=== PATIENT | female | born 1970 | race Caucasian/White ===

== ENCOUNTER 2025-03-23 17:33 | Emergency (ER) | payer OTHER, SELFPAY ==
--- OUTSIDE RECORDS SUMMARY | 2004-12-21 04:06 | XMS_ITS | Continuity of Care Document ---
Author Organization [facility] Address [address] [place] [address] Phone Care Team Providers Care Ocularist Name Role Phone Tom Pate MD Unavailable Unavaila ble Procedures Procedure Date ESTABLISHED PATIENT POSTOP FOLLOWUP VISI T DEBRIDE SKIN/SUBCU/MUSCLE ESTABLISHED PATIENT POSTOP FOLLOWUP VISI T Advance Directives Directive Yes / No Effective Date File Name No Information Encounters Encounter Description Practice Location Reason(s) For Visit Diagnoses Date Provider Providers Copied on Encounter [facility], [facility] [address], [place], [place], [id number], [place] tel:[phone] [facility] No Information 1-[address] [place], [address]. tel:[phone] Referring Provider: Tom Figueredo, [address] [place], [address]. tel:[phone] [facility], [facility] [place], [place], [id number], [place] tel:[phone] [facility] No Information 0-[address] [place], [address]. tel:[phone] Referring Provider: Tom Figueredo, [address] [place], [address]. tel:[phone] [facility], [address], [place], [place], [id number], [place] tel:[phone] [facility] No Information Oct-0 4-200 [address] [place], [address]. tel:[phone] Referring Provider: Tom Pate MD H, [address] [place], [address]. tel:[phone] Family History Family Member Type Diagnosis Age At Onset No Information Payers Payer name Insurance type Covered alliance party ID [employer] obggs(s) [facility] [id number] Social History Type Description Quantity Date Captured Comments Sex Female Smoking Status No Information Chief Complaint And Reason For Visit No Information Reason For Referral Reason For Referral No Information History Of Present Illness Encounter Date Complaint History Of Prese nt Illness No Information Functional Status Date Functional Assessmen t No Information Instructions Date Instruction Additional Infor mation No Information Assessments Type Assessment Date No Information Patient Care Teams Name Effective Dates (start - stop) Status Members No Information
--- OUTSIDE RECORDS SUMMARY | 2025-03-23 17:42 | XMS_ITS | Clinical Summary ---
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 artery disease Father Gokul ortiz artery disease; Diabetes Father Gokul Diabetes; Diabetes type II Father Gokul Diabetes me llitus type 2; Heart attack Father Gokul Myocardial infa rction; Heart failure Father Gokul Lung cancer Father Gokul Prostate cancer Father Gokul Cancer, pros piña; Rheum arthritis Father Gokul Breast cancer Father's Sister Jaclyn Nair Colon cancer Father's Sister Jaclyn Nair Cancer, co allyn; Colon polyps Mother Sharla Brown Coronary artery disease Mother Sharla ortiz artery disease; Diabetes Mother Sharla Brown Diabetes; Diabetes type II Mother Sharla Brown Diabetes me llitus type 2; Heart failure Mother Sharla Brown Congestive hea rt failure; Cause of : Congestive heart failure/Congestive heart failure; Hypertension Mother Sharla Brown Hypertension; Non-Hodgkin's Lymphoma Mother Sharla Brown Non-H odgkin's lymphoma; /Non-Hodgkin's lymphoma; Cause of : Non-Hodgkin's lymphoma Obesity Mother Sharla Brown Thyroid disease Mother Sharla Brown Diabetes Paternal Grandmother Romana Diabete s; Heart attack Paternal Grandmother Romana Myocard ial infarction; Asthma Sister Marifer Cavanaugh Ovarian cancer Neg Hx Uterine cancer Neg Hx Relation Name Status Comments Father Gokul Father's Sister Jaclyn Nair Mother Sharla Brown Paternal Grandmother Romana Sister Marifer Cavanaugh Alive Social History Tobacco Use Types Packs/Day Years Used Date Smoking Tobacco: Never Smokeless Tobacco: Never Tobacco Cessation:Counseling Given: Not Answered Alcohol Use Standard Drinks/Week Comments Yes 1 (1 standard drink = 0.6 oz pur e alcohol) AUDIT-C Answer Date Recorded Q1: How often do you have a drink containing alc ohol? Monthly or less 10/04/2021 Q2: How many drinks containi ng alcohol do you have on a typical day when you are drinking? 1 or 2 10/04/2021 Q3: How often do you have si x or more drinks on one occasion? 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 Gender Identity Female 10/09/2020 11:02 AM CDT Sexual Orientation Not on file Obstetrics History Para Term AB IAB SAB Ectopic Multiple Livin g Live Births 1 1 1 Date Outcome GA Total Labor Labor/2nd/3rd Weight Sex Type Anes PTL Arina A1 A5 Name Clin 1996 Para 3.43 kg (7 lb 9 oz) Vag-S pont Complications:Gestational di abetes Last Filed Vital Signs Vital Sign Reading Time Taken Comments Blood Pressure 135/83 10/16/2024 8:07 AM CDT Pulse 71 10/16/2024 8:07 AM CDT Temperature 36.7 C (98.1 F) 10/16/2024 8:07 AM CDT Respiratory Rate 14 10/08/2024 2:17 PM CDT Oxygen Saturation 96% 10/08/2024 2:17 PM CDT Inhaled Oxygen Concentration - - Weight 108.9 kg (240 lb) 03/20/2025 11:34 AM CDT Height 160 cm (5' 3) 03/20/2025 11:34 AM CDT Body Mass Index 42.51 03/20/2025 11:34 AM CDT Plan of Treatment Scheduled Procedures Name Priority Associated Diagnoses Date/Ti me COLONOSCOPY Screening for colon cancer Health Maintenance Due Date Last Done Comments Pneumococcal vaccine <65 (2 of 2 - PCV) 08/25/2015 08/25/2014 Zoster Vaccine (1 of 2) 2020 Covid-19 Vaccine (2023-2 5 season) 2024 07/29/2023, 09/04/2022, 05/14/2022, Additional history exists Influenza Vaccine (#1) 2025 , 06/02/2023, 05/14/2022, Additional history exists Albumin Creatinine Ratio, Urine 04/01/2025 04/01/2024, 02/23/2023, 03/02/2021, Additional history exists Lipid Panel 04/01/2025 04/01/2024, 08/0 09/2022, 09/22/2021, Additional history exists eGFR 04/01/2025 04/01/2024, 08/0 09/2022, 09/22/2021, Additional history exists Hemoglobin A1C 04/18/2025 10/16/2024, 06/2 10/2023, 09/05/2023, Additional history exists Depression Screening 10/08/2025 10/08/2024, 10/17/2023, 09/05/2023, Additional history exists Foot Exam 10/08/2025 10/08/2024, 12/1 09/2021, 05/18/2021, Additional history exists Regular Well Visit/Exam 18-64 10/08/2025, 09/05/2023, 08/15/2022, Additional history exists Dilated Eye Exam 01/08/2026 01/08/2025, , 12/13/2022, Additional history exists DTaP/Tdap/Td Vaccine (2 - Td or Tdap) 02/15/2026 02/16/2016, 07/25/2011 Breast Cancer Screening-Mammogram 03/20/2026 03/20/2025, 01/23/2024, 12/08/2022, Additional history exists Colon Cancer Screening-Colonoscopy 10/05/2031 10/04/2021 Cervical Cancer Screening Discontinued 09/21/2020 Hepatitis C Screening Completed 11/17/2020 Hepatitis B Screening Completed 05/11/2021 , 01/15/2021, 11/20/2020 Procedures Procedure Name Priority Date/Time Associated Diagnosis Comments US BREAST LEFT LIMITED Schedule Routine, Read Routine (OP Routine) 03/20/2025 1:00 PM CDT Mass of lower outer quadrant of left breast DIAGNOSTIC MAMMOGRAM BILATERAL W WILFRIDO Schedule Routine, Read Routine (OP Routine) 03/20/2025 11:44 AM CDT Mass of lower outer quadrant of left breast DIABETIC EYE EXAM Routine 01/08/2025 1:4 0 PM CDT POCT HEMOGLOBIN A1C Routine 10/16/2024 8 :12 AM CDT Type 2 diabetes mellitus with hyperglycemia, without long-term current use of insulin (HCC) COMPREHENSIVE METABOLIC PANEL Routine 04/01/2024 8:26 AM CDT Annual physical exam LIPID PANEL Routine 04/01/2024 8:26 AM CDT Annual physical exam ALBUMIN CREATININE RATIO, URINE Routine 04/01/2024 8:26 AM CDT Type 2 diabetes mellitus with hyperglycemia, without long-term current use of insulin (HCC) Annual physical exam COLONOSCOPY 10/04/2021 9:44 AM CDT HEPATITIS PANEL, ACUTE Routine 11/17/2020 8:31 AM CDT Abnormal laboratory test result PAP AND HIGH RISK HPV, REFLEX TO GENOTYPING Routine 09/21/2020 9:12 AM VETERINARIAN SMALL ANIMAL Well woman exam from Last 3 Months or Most Recently Relevant to Health Maintenance Results * US Breast Left Limited (03/20/2025 1:00 PM CDT) Anatomical Region Laterality Modality Breast Left Ultrasound 03/20/2025 1:34 PM CDT Impressions 03/20/2025 1:34 PM CDT 1. No mammographic finding of malignancy in the right breast. 2. No mammographic or sonographic finding of malignancy in the left breast. Overall final assessment: BI-RADS 2: Benign RECOMMENDATION: Annual screening mammography in one year. Findings and recommendations were communicated to the patient. *The patient's information was entered into a reminder system with a target due date for the next mammogram. Electronically signed by: EM BEASLEY M.D. Narrative 03/20/2025 1:34 PM CDT EXAM: DIAGNOSTIC MAMMOGRAM BILATERAL W WILFRIDO, US BREAST LEFT LIMITED CLINICAL INDICATION: The patient presented for bilateral diagnostic mammography. She is following up for evaluation of a previously described probably benign finding in the left breast. TECHNIQUE: Bilateral full-field digital diagnostic mammography with computer aided detection. 3D tomosynthesis images were performed. COMPARISON: Comparison is made with prior available relevant studies at the time of interpretation. FINDINGS: There are scattered areas of fibroglandular density. There is a mass in the slightly upper outer quadrant of the left breast, that waxes and wanes on mammography. Stable lateral mass seen in the right breast. Left breast ultrasound: There is a benign intramammary lymph node at 3:00 3 cm from the nipple (demarcated with 2 metallic BBs) that corresponds to the slightly upper outer quadrant mass seen on mammography. There is a 0.5 cm benign intramammary lymph node at 1:00 2 cm from the nipple (demarcated with one metallic BB) that corresponds to the more lateral CC asymmetry. us Aden Barnard MD IMG MAMMO PROCEDURES Final Res ult * Diagnostic Mammogram Bilateral W Wilfrido (03/20/2025 11:44 AM CDT) Anatomical Region Laterality Modality Breast Bilateral Mammography 03/20/2025 1:34 PM CDT Impressions 03/20/2025 1:34 PM CDT 1. No mammographic finding of malignancy in the right breast. 2. No mammographic or sonographic finding of malignancy in the left breast. Overall final assessment: BI-RADS 2: Benign RECOMMENDATION: Annual screening mammography in one year. Findings and recommendations were communicated to the patient. *The patient's information was entered into a reminder system with a target due date for the next mammogram. Electronically signed by: EM BEASLEY M.D. Narrative 03/20/2025 1:34 PM CDT EXAM: DIAGNOSTIC MAMMOGRAM BILATERAL W WILFRIDO, US BREAST LEFT LIMITED CLINICAL INDICATION: The patient presented for bilateral diagnostic mammography. She is following up for evaluation of a previously described probably benign finding in the left breast. TECHNIQUE: Bilateral full-field digital diagnostic mammography with computer aided detection. 3D tomosynthesis images were performed. COMPARISON: Comparison is made with prior available relevant studies at the time of interpretation. FINDINGS: There are scattered areas of fibroglandular density. There is a mass in the slightly upper outer quadrant of the left breast, that waxes and wanes on mammography. Stable lateral mass seen in the right breast. Left breast ultrasound: There is a benign intramammary lymph node at 3:00 3 cm from the nipple (demarcated with 2 metallic BBs) that corresponds to the slightly upper outer quadrant mass seen on mammography. There is a 0.5 cm benign intramammary lymph node at 1:00 2 cm from the nipple (demarcated with one metallic BB) that corresponds to the more lateral CC asymmetry. Aden Barnard MD IMG MAMMO PROCEDURES Final Res ult * Diabetic Eye Exam (01/08/2025 1:40 PM CDT) Impressions Jasmin Reilly - 01/08/2025 1:40 PM CDT No retinopathy Result [facility] [place] Provider HEALTH MAINTENANCE Final Result * POCT hemoglobin A1c (10/16/2024 8:12 AM CDT) Hemoglobin A1C, POC 8.2 4.0 - 5.6 % Blood 10/16/2024 8:12 AM CDT Result [facility] Dona SOSA POINT OF CARE TEST ORDERABLES Final Result * Albumin Creatinine Ratio, Urine (04/01/2024 8:26 AM CDT) Creatinine ur 106.9 Not Estab. mg/dL [facility] - 01 Microalbumin, ur <3.0 Not Estab. ug/mL [facility] - 01 Microalbumin/cre at ratio <3 0 - 29 mg/g creat [facility] - 01 Comment: Normal: 0 - 29 Moderately increased: 30 - 300 Severely increased: >300 Urine 04/01/2024 8:26 AM CDT 04/01/2024 Narrative [facility] - 04/02/2024 11:12 AM CDT Performed at: [facility] [id number] Chef'S Assistant: Antonio Vasquez PhD, Phone: [phone] Result [facility] Aden Barnard MD LAB URINE ORDERABLES Final Res ult Performing Organization Address [facility] de Phone Number [facility] - * Lipid panel (04/01/2024 8:26 AM CDT) Cholesterol 152 100 - 199 mg/dL [facility] - 01 Triglycerides 132 0 - 149 mg/dL [facility] - 01 HDL Cholesterol 44 >39 mg/dL [facility] - 01 VLDL 23 5 - 40 mg/dL [facility] - 01 LDL, calculated 85 0 - 99 mg/dL [facility] - 01 Blood 04/01/2024 8:26 AM CDT 04/01/2024 Narrative [facility] - 04/02/2024 1:09 PM CDT Performed at: [address] [place] [id number] Chef'S Assistant: Antonio Vasquez PhD, Phone: [phone] dAen Barnard MD LAB BLOOD ORDERABLES Final Res ult Performing Organization Address [facility] de Phone Number [facility] - * (ABNORMAL) Comprehensive metabolic panel (04/01/2024 8:26 AM CDT) Glucose 124(H) 70 - 99 mg/dL [facility] - 01 BUN 15 6 - 24 mg/dL [facility] - 01 Creatinine, Serum 0.76 0.57 - 1.00 mg/dL [facility] - 01 eGFR 94 >59 mL/min/1.7 3 [facility] - 01 BUN/creat ratio 20 9 - 23 [facility] - 01 Sodium 138 134 - 144 mmol/L [facility] - 01 Potassium, sr 4.3 3.5 - 5.2 mmol/L [facility] - 01 Chloride 100 96 - 106 mmol/L [facility] - 01 CO2 21 20 - 29 mmol/L [facility] - 01 Calcium 9.2 8.7 - 10.2 mg/dL [facility] - 01 Protein, sr 6.9 6.0 - 8.5 g/dL [facility] - 01 Albumin 4.1 3.8 - 4.9 g/dL [facility] - 01 Globulin, Total 2.8 1.5 - 4.5 g/dL [facility] - 01 Bilirubin, Total 0.3 0.0 - 1.2 mg/dL [facility] - 01 Alk phos 76 44 - 121 IU/L [facility] - 01 AST 34 0 - 40 IU/L [facility] - 01 ALT 20 0 - 32 IU/L [facility] - 01 Blood 04/01/2024 8:26 AM CDT 04/01/2024 Narrative [facility] - 04/02/2024 1:09 PM CDT Performed at: - [facility] [address] [id number] Chef'S Assistant: Antonio Vasquez PhD, Phone: [phone] us Aden Barnard MD LAB BLOOD ORDERABLES Final Res ult [facility] - 01 * COLONOSCOPY (10/04/2021 9:44 AM CDT) Anatomical Region Laterality Modality Other Narrative Procedure Note Danyelle Iglesias MD - 10/04/2021 9:44 AM CDT [facility] Patient Name: Kitty Starr Procedure Date: 10/04/2021 9:44 AM Date of : 1970 Admit Type: Outpatient Age: 51 Gender: Female Attending MD: Danyelle Iglesias M.D. Room: [facility] ENDOSCOPY ROOM 3 Note Status: Finalized Procedure: Colonoscopy Indications: Screening for colorectal malignant neoplasm Referring MD: Danyelle Iglesias M.D. Providers: Danyelle Iglesias M.D. Medicines: Monitored Anesthesia Care Complications: No immediate complications. Estimated Blood Loss: Estimated blood loss: none. Procedure: Pre-Anesthesia Assessment: - ASA Grade Assessment: II - A patient with mild systemic disease. - Immediately prior to administration ofmedications, the patient was re-assessed for adequacy to receive sedatives. - The risks and benefits of the procedure and the sedation options and risks were discussed with the patient. All questions were answered and informed consent was obtained. The benefits, risks and alternatives of theprocedure and sedation were discussed and informed consentwas obtained. All questions were answered. Please referto the signed informed consent document in the medical record. The scope was passed under direct vision.The PCF [id number] endoscope was introduced through the anus and advanced to the cecum, identified by appendiceal orifice and ileocecal valve. The colonoscopy was performed without difficulty. The patient tolerated the procedure well. The qualityof the bowel preparation was good. The bowelpreparation used was SUPREP via split dose instruction. Findings: The perianal and digital rectal examinations were normal. The entire examined colon appeared normal on direct and retroflexion views. Impression: - The entire examined colon is normal on direct and retroflexion views. - No specimens collected. Recommendation: - Patient has a contact number available for emergencies. The signs and symptoms of potential delayed complications were discussed with thepatient. Return to normal activities tomorrow. Written discharge instructions were provided to thepatient. - Resume previous diet. - Continue present medications. - Repeat colonoscopy in 10 years for screening purposes. Electronically signed by Danyelle Iglesias MD Danyelle Iglesias M.D. 10/04/2021 10:07:56 AM . Number of Addenda: 0 Note Initiated On: 10/04/2021 9:44 AM Recognized by the [place] [employer] for promoting quality in endoscopy Danyelle Iglesias MD ENDOSCOPY PROCEDURES Final Res ult * Hepatitis panel, acute (11/17/2020 8:31 AM CDT) Hep A IgM Negative Negative [facility] - 01 HepBsAg Negative Negative [facility] - 01 Hep B core IgM Negative Negative [facility] - 01 Hep C Ab <0.1 0.0 - 0.9 s/co ratio [facility] - 01 Comment: Negative: < 0.8 Indeterminate: 0.8 - 0.9 Positive: > 0.9 The CDC recommends that a positive HCV antibody result be followed up with a HCV Nucleic Acid Amplification test (754140). Blood specimen (specimen) 11/17/2020 8:31 AM CDT 11/17/2020 Narrative [facility] - 11/18/2020 8:13 AM CDT Performed at: - [address] [id number] Chef'S Assistant: Antonio Vasquez PhD, Phone: [phone] Kanwal Duarte NP LAB MICROBIOLOGY - GENER AL ORDERABLES Final Result [facility] - 01 * Pap and High Risk HPV, reflex to Genotyping (09/21/2020 9:12 AM VETERINARIAN SMALL ANIMAL) Swab (Pap test) 09/21/2020 9 :12 AM VETERINARIAN SMALL ANIMAL 09/23/2020 9:43 AM VETERINARIAN SMALL ANIMAL Narrative PATHOLOGY [facility] - 09/24/2020 1:42 PM VETERINARIAN SMALL ANIMAL EPIC results best viewed via link to PDF [address] [address] Tele: Elaine Lutz MD - Ply Cutter CYTOLOGY REPORT Patient Name: KITTY STARR Address: [address] [place] [address] Gender: F : 1970 (Age: 50) Service: Laboratory Location: Lab [facility] #: [id number] Patient Type: [facility] Lab Taken: 09/21/2020 Reported: 09/24/2020 Physician(s): LEONEL Guerra FINAL DIAGNOSIS: Specimen Type: - ThinPrep Pap and HPV w/ reflex Genotyping Statement of Specimen Adequacy: Source: Vaginal - Satisfactory for evaluation - Case screened using computer assisted imaging technology General Categorization: - Negative for intraepithelial lesion or malignancy Interpretation: - Fungal organisms morphologically consistent with Danette species alld/09/24/2020 13:42 ALEKSEY Alonzo(ASCP)EVELIA Report Reviewed and Electronically Signed By ALEKSEY Alonzo(ASCP)EVELIA Clerical Data Follow A; G0145 DIAGNOSIS COMMENT: Ancillary Testing: HPV High Risk Group (16, 18, 31, 33, 35, 39, 45, 51, 52, 56, 58, 59, 66 and 68) - Not Detected Reference Range: Not Detected This test was performed using the MART 4800 CLINICAL DIAGNOSIS AND HISTORY Menstrual History: Hysterectomy REPORT IMAGES AND/OR SCANNED DOCUMENTS ONLY VIEWABLE IN PDF FORMAT The Pap test is a screening test used to aid in the detection of cervical cancer and its precursors. It should not be the sole means by which malignant and premalignant lesions are diagnosed. Both false negative and false positive results may occur. It also has poor sensitivity for the detection of endometrial lesions and should not be used to evaluate suspected endometrial abnormalities. For these reasons it is most important to obtain Pap tests at regular intervals, as recommended by your physician or nurse practitioner. us Deidre Marcus NP LAB CYTOLOGY ORDERABLES nal Result PATHOLOGY [facility] Laboratory Receiving [address] [place] [address] from Last 3 Months or Most Recently Relevant to Health Maintenance Insurance Member Subscriber Plan / Payer (Ef fective 2011-Present) Name:KITTY STARR Relation to Subscriber:Self Name:Kitty Starr Payer ID:[id number] (NAIC) Type:[facility] HMO/PPO Address: [address] Member Subscriber Plan / Payer (Ef fective 2017-Present) Name:Kitty Starr Relation to Subscriber:Self Name:KITTY STARR Payer ID:[id number] (NAIC) Type:[facility] HMO/PPO Address: [address] Care Teams Manager Data Warehouse Relationship Specialty Start Date End Date Aden Barnard MD [address] [address] PCP - General 10/21/16 Josie Shearer MD [address] [address] Consulting Physician Obstetrics and Gynecology 09/21/20 Dona Obrien PA [address] [facility], [address] [address] Physician Rn Access Physician Rn Access 07/13/24
--- OUTSIDE RECORDS SUMMARY | 2025-03-23 17:42 | XMS_ITS | Encounter Summary ---
Author Organization [facility] Healthcare Address [address] [place] [address] Care Team Providers Care Returned Telephone Equipment Appraiser Name Role Phone Aden Barnard MD Primary Care Provider [phone] Josie Shearer MD Unavailable [phone] Dona Obrien Unavailable [phone] Encounter Details Date Type Department Care Team (Late st Contact Info) Description 03/18/2025 Orders Only [place] [facility] [address] [facility] [address] [place] [address] Aden Barnard MD [address] [facility] [address] [place] [address] Dysuria (Primary Dx) Social History Tobacco Use Types Packs/Day Years Used Date Smoking Tobacco: Never Smokeless Tobacco: Never Alcohol Use Standard Drinks/Week Comments Yes 1 [...] on file Legal 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 6 tablet 03/18/2025 03/23/2025 documented in this encounter Plan of Treatment Scheduled Orders Name Type Priority Associated Diagnoses Orde r Schedule Urinalysis reflex to microscopic and culture Urine, bladder Microbiology Routine Dysuria Expected: 03/21/2025, Expires: 03/18/2026 Scheduled Procedures Name Priority Associated Diagnoses Date/Ti me COLONOSCOPY Screening for colon cancer documented as of this encounter Visit Diagnoses Diagnosis Dysuria- Primary documented in this encounter Care Teams Returned Telephone Equipment Appraiser Relationship Specialty Start Date End Date Aden Barnard MD [address] [address] PCP - General 10/21/16 Josie Shearer MD [address] [address] Consulting Physician Obstetrics and Gynecology 09/21/20 Dona Obrien PA [address] [facility], [address] [address] Physician Family Health Nurse Practitioner Physician Family Health Nurse Practitioner 07/13/24 documented as of this encounter
[2025-03-23 17:45] VITALS: BP 132/51; PULSE 81; RESP 20; TEMP 36.9; O2SAT 98
--- NOTE | 2025-03-23 17:53 | ED_ITS ---
HPI - URI/Sore Throat General Chief Complaint: Upper Respiratory Infection Stated Complaint: coughing Time Seen by Provider: 03/23/25 17:53 Source: patient Mode of arrival: ambulatory Limitations: no limitations History of Present Illness HPI Narrative: 54 y/o female with hx DM presented for c/o cough x2 weeks, started with nasal congestion today. Tested negative for covid at onset of symptoms. Denies sob, wheezing, fatigue, n/v/d/f/c. Related Data Home Medications ?Medication ?Instructions ?Recorded ?Confirmed ?Last Taken ?Type benazepril 20 tablet 03/23/25 Unknown His tory mg-hydrochlorothiazide 25 mg tablet benzonatate 100 mg capsule mg PO 03/23/25 Unknown His tory levothyroxine 137 mcg tablet mcg 03/23/25 Unknown His tory metformin 500 mg tablet,extended mg PO 03/23/25 Unkno wn History release 24 hr Review of Systems Review of Systems: CONSTITUTIONAL: Denies body aches, fever, chills, or sweats. EYES: Denies visual changes, redness, or discharge. ENT: reports rhinorrhea, congestion, Denies sore throat, or otalgia. CARDIOVASCULAR: Denies chest pain, palpitations, or edema. RESPIRATORY: Reports cough, Denies sob, wheezing. GASTROINTESTINAL: Denies abdominal pain, nausea, vomiting, or diarrhea. SKIN: Denies rash NEUROLOGIC: Denies headache All systems reviewed & are unremarkable except as noted in HPI and below PMFSH Past Medical History Medical History (Updated 03/23/25 @ 18:04 by Etelvina Fernando, DEBORAH) Diabetes Comments At time of signature, I have reviewed and agree with nursing past medical, surgical, social and family history unless otherwise noted. Please see nursing chart for further information. There is no relevant family history pertinent to the presenting complaint Exam Narrative: GENERAL: Well-appearing, in no acute distress. EYES: EOMI. No redness or drainage. Conjunctivae normal. ENT: Mucous membranes pink and moist. No rhinorrhea. TMs normal bilaterally. Throat normal. Uvula midline. NECK: Normal AROM. Supple. CHEST: No respiratory distress. lungs clear to all agustin. HEART: Regular rate and rhythm. No murmur appreciated. ABDOMEN: Soft, nontender, nondistended, normal active bowel sounds. EXTREMITIES: Normal range of motion. No edema. SKIN: Warm, dry, no rash. Capillary refill normal. Normal skin turgor. NEURO: Alert and oriented x3. Gait steady. PSYCH: Normal affect. Course Course Emergency Course: Patient is aware of diagnosis, understands and agrees to treatment plan. Anticipatory guidance given. Patient agrees to follow-up as directed and is aware of reasons to seek care at the emergency department. Portions of this record may have been created with voice recognition software Level of Care: Express Care Visit MDM - URI/Sore Throat MDM Narrative Medical decision making narrative: Discussed physical exam findings, reviewed RXs. Advised supportive measures and signs/symptoms to go to the ER. Pt is appropriate for outpt treatment and f/u. Differential Diagnosis Differential diagnosis: Likely upper respiratory infection, sinusitis, viral infection, bronchitis, pharyngitis and other (Angioedema, perforation, asthma, pneumonia, PE, tension pneumothorax, cardiac tamponade MT, pericarditis, pleural effusion, CHF, bronchitis, cardiac arrhythmia) Discharge Plan Discharge Clinical Impression: Bronchitis Patient Disposition: Home Condition: Stable Instructions: Antibiotic Form, Acute Bronchitis (ED) Additional Instructions: Take medication as directed Recommend Flonase spray and Zyrtec (or Claritin/Sabra) over the counter Cough syrup may cause drowsiness; avoid driving or take it at night time. Tylenol every 8 hours as needed for pain Symptomatic treatment includes: rest, fluids, and increase humidity of the air at home. Follow up with your primary care provider as needed in 1 week Go to the ER for worsening symptoms or concerns Patient Language: Irish Prescriptions: New prednisone 20 mg tablet 40 mg PO DAILY 5 Days Qty: 10 0RF azithromycin [Zithromax Z-Anthony] 250 mg tablet See Rx Instructions .ROUTE .COMPLEX Qty: 6 0RF Rx Instructions: For 250 mg dose pack: take 500 mg today (day 1), then 250 mg for 4 days (days 2-5) No Action levothyroxine 137 mcg tablet benazepril-hydrochlorothiazide 20-25 mg tablet benzonatate 100 mg capsule PO metformin 500 mg tablet extended release 24 hr PO Follow-up/Referrals: PHYSICIAN NOT ON STAFF,NONSTAFF [Primary Care Provider] Time of Disposition: 18:03
== END 2025-03-23 18:05 | disposition home or self-care (01) ==
PROVIDERS: Emergency Provider Nurse Practitioner Family
DX: J40 Bronchitis, not specified as acute or chronic (principal); E11.9 Type 2 diabetes mellitus without complications; Z79.84 Long term (current) use of oral hypoglycemic drugs
CPT/HCPCS: 99213; G0463